=== PATIENT | female | born 1960 | race Caucasian/White ===

== ENCOUNTER 2023-04-20 13:58 | Emergency (ER) | payer MEDICARE ==
[2023-04-20 14:04] VITALS: RESP 20; TEMP 98.6
[2023-04-20 14:57] VITALS: PULSE 86
--- NOTE | 2023-04-20 15:21 | ED ---
General Adult HPI - General Chief complaint: Fall Stated complaint: Lt shoulder injury Time Seen by Provider: 04/20/23 14:53 Source: patient, RN notes reviewed Mode of arrival: ambulatory Limitations: no limitations - History of Present Illness Initial comments: 63-year-old female presents emergency department chief complaint of mechanical fall. Patient states that she fell on Thursday and Thursday and landed on her left shoulder. She reports pain to her left shoulder and left under her axillary area. She states she did not hit her head or lose consciousness. She denies blood thinners. Denies fever, chills. Denies shortness of breath, chest pain. She is also complaining of a productive cough with some congestion. She has a history of COPD. - Related Data Previous Rx's Medication Instructions Recorded Azithromycin [Zithromax Z Pack] 0 tab PO DIRECTED #6 tab 04/20/23 Allergies Allergy/AdvReac Type Severity Reaction Status Date / Time Penicillins Allergy Unknown Verified 04/20/23 14:04 Childhood Review of Systems ROS Statement: Those systems with pertinent positive or pertinent negative responses have been documented in the HPI. ROS Other: All systems not noted in ROS Statement are negative. Past Medical History Past Medical History: No Reported History History of Any Multi-Drug Resistant Organisms: None Reported Past Surgical History: Section, Cholecystectomy Past Psychological History: Anxiety, Depression Smoking Status: Current every day smoker Past Alcohol Use History: None Reported Past Drug Use History: Cocaine, Prescription Drug Abuse General Exam Limitations: no limitations General appearance: alert, in no apparent distress Head exam: Present: atraumatic, normocephalic, normal inspection Eye exam: Present: normal appearance, PERRL, EOMI. Absent: scleral icterus, conjunctival injection, periorbital swelling ENT exam: Present: normal exam, mucous membranes moist Neck exam: Present: normal inspection. Absent: tenderness, meningismus, lymphadenopathy Respiratory exam: Present: normal lung sounds bilaterally, chest wall tenderness (Left-sided chest wall tenderness under the left axilla due to injury). Absent: respiratory distress, wheezes, rales, rhonchi, stridor Cardiovascular Exam: Present: regular rate, normal rhythm, normal heart sounds. Absent: systolic murmur, diastolic murmur, rubs, gallop, clicks Extremities exam: Present: other (Mild tenderness of left shoulder over the deltoid, normal capillary refill, normal range of motion, radial pulses 2+) Back exam: Present: normal inspection Neurological exam: Present: alert, oriented X3 Psychiatric exam: Present: normal affect, normal mood Skin exam: Present: warm, dry, intact, normal color. Absent: rash Course Vital Signs 04/20/23 04/20/23 04/20/23 13:59 14:56 17:03 Temperature 98.6 F Pulse Rate 81 86 86 Respiratory 20 20 20 Rate Blood Pressure 136/86 130/78 145/86 O2 Sat by Pulse 94 L 98 Oximetry Medical Decision Making - Medical Decision Making Was pt. sent in by a medical professional or institution (, PA, RACK PRODUCTION WORKER, urgent care, hospital, or assisted...) When possible be specific @ -No Did you speak to anyone other than the patient for history (EMS, parent, family, police, friend...)? What history was obtained from this source @ -No Did you review nursing and triage notes (agree or disagree)? Why? @ -I reviewed and agree with nursing and triage notes Were old charts reviewed (outside hosp., previous admission, EMS record, old EKG, old radiological studies, urgent care reports/EKG's, assisted records)? Report findings @ -No old charts were reviewed Differential Diagnosis (chest pain, altered mental status, abdominal pain women, abdominal pain men, vaginal bleeding, weakness, fever, dyspnea, syncope, headache, dizziness, GI bleed, back pain, seizure, CVA, palpatations, mental health, musculoskeletal)? @ -Differential Musculoskeletal Muscular strain, contusion, ligament sprain, fracture, arthritis, septic arthritis, bursitis, cellulitis, muscle spasm, nerve compression, DVT, arterial occlusion, herpes zoster, electrolyte abnormality, tumor.... This is not meant to be in all inclusive list EKG interpreted by me (3pts min.). @ -None X-rays interpreted by me (1pt min.). @ -Chest x-ray was obtained which showed no evidence for fracture, no acute cardiopulmonary process X-ray of left shoulder was obtained which showed no evidence for fracture CT interpreted by me (1pt min.). @ -None done U/S interpreted by me (1pt. min.). @ -None done What testing was considered but not performed or refused? (CT, X-rays, U/S, labs)? Why? @ -None What meds were considered but not given or refused? Why? @ -None Did you discuss the management of the patient with other professionals (professionals i.e. , PA, RACK PRODUCTION WORKER, lab, RT, psych nurse, secondary social studies teacher, gallery or museum guide, teacher, eeo officer, registered nurse hh case manager)? Give summary @ -No Was smoking cessation discussed for >3mins.? @ -No Was critical care preformed (if so, how long)? @ -No Were there social determinants of health that impacted care today? How? (Homelessness, low income, unemployed, alcoholism, drug addiction, transportation, low edu. Level, literacy, decrease access to med. care, care home, re hab)? @ -No Was there de-escalation of care discussed even if they declined (Discuss DNR or withdrawal of care, Hospice)? DNR status @ -No What co-morbidities impacted this encounter? (DM, HTN, Smoking, COPD, CAD, Cancer, CVA, ARF, Chemo, Hep., AIDS, mental health diagnosis, sleep apnea, morbid obesity)? @ -None Was patient admitted / discharged? Hospital course, mention meds given and route, prescriptions, significant lab abnormalities, going to OR and other pertinent info. @ -Discharged. Patient presented to emergency department chief complaint of left shoulder pain and left chest wall pain under the axilla following a fall that occurred on Thursday in which she did not hit her head or lose consciousness. X-ray of chest and shoulder were obtained which showed no acute fractures, chest x-ray did not show any evidence acute cardiopulmonary process. Patient was given a shot of Toradol which she reports helped with her pain. Patient also was complaining of a productive cough with congestion but denies fever. Her lungs are clear to auscultation. There was no acute cardiopulmonary process evident on the x-ray. With patients history of COPD, patient was given a z-pac prescription. Patient discharged in stable condition. Case discussed with my attending, Dr. Zuñiga Undiagnosed new problem with uncertain prognosis? @ -No Drug Therapy requiring intensive monitoring for toxicity (Heparin, Nitro, Insulin, Cardizem)? @ -No Were any procedures done? @ -No Diagnosis/symptom? @ -rib contusion Acute, or Chronic, or Acute on Chronic? @ -acute Uncomplicated (without systemic symptoms) or Complicated (systemic symptoms)? @ -uncomplicated Side effects of treatment? @ -No Exacerbation, Progression, or Severe Exacerbation? @ -No Poses a threat to life or bodily function? How? (Chest pain, [place], [place], pneumonia, PE, COPD, DKA, ARF, appy, cholecystitis, CVA, Diverticulitis, Homicidal, Suicidal, threat to staff... and all critical care pts) @ -No Diagnosis/symptom? @ -URI] Acute, or Chronic, or Acute on Chronic? @ -acute Uncomplicated (without systemic symptoms) or Complicated (systemic symptoms)? @ -uncomplicated Side effects of treatment? @ -none Exacerbation, Progression, or Severe Exacerbation] @ -no Poses a threat to life or bodily function? @ -no Disposition Clinical Impression: Fall Disposition: HOME SELF-CARE Condition: Stable Instructions (If sedation given, give patient instructions): Fall Prevention (ED) Additional Instructions: Return to the emergency department for new or worsening symptoms. Prescriptions: Azithromycin [Zithromax Z Pack] 0 tab PO DIRECTED #6 tab Is patient prescribed a controlled substance at d/c from ED?: No Referrals: Lior Wu MD [Primary Care Provider] - 1-2 days
--- NOTE | 2023-04-20 15:36 | XR ---
EXAMINATION TYPE: XR chest 2V DATE OF EXAM: 04/20/2023 COMPARISON: NONE HISTORY: Fall injury with chest and rib pain TECHNIQUE: Frontal and lateral views of the chest are obtained. FINDINGS: There is mild chronic parenchymal change without suspicious focal air space opacity, pleur al effusion, or pneumothorax seen. The cardiac silhouette size is within normal limits. The osseou s structures are intact. Cholecystectomy clips are noted. IMPRESSION: No acute cardiopulmonary process.
--- NOTE | 2023-04-20 15:49 | XR ---
EXAMINATION TYPE: XR shoulder complete LT DATE OF EXAM: 04/20/2023 CLINICAL HISTORY: Falling injury with pain TECHNIQUE: Three views of the left shoulder are obtained. COMPARISON: None. FINDINGS: Osseous structures are demineralized. There is no acute fracture/dislocation evident in th e left shoulder. The acromioclavicular and glenohumeral joint spaces appear within normal limits. T he visualized ribs are intact and unremarkable. IMPRESSION: There is no acute fracture or dislocation in the left shoulder.
[2023-04-20] MEDS ORDERED: KETOROLAC 15 MG/ML 1 ML VIAL IM STA (16:38)
[2023-04-20 17:04] VITALS: BP 145/86
== END 2023-04-20 17:15 | disposition home or self-care (01) ==
LOC: EC 13:58
DX: M25.512 Pain in left shoulder (principal); F17.200 Nicotine dependence, unspecified, uncomplicated; Z88.0 Allergy status to penicillin; Z86.59 Personal history of other mental and behavioral disorders; W18.30XA Fall on same level, unspecified, initial encounter
CPT/HCPCS: 73030; 71046; 99283; J1885

== ENCOUNTER 2024-04-25 08:41 | Inpatient (IN) | payer MEDICARE, OTHER ==
--- NOTE | 2024-04-25 09:15 | ED ---
SOB HPI - General Chief Complaint: Shortness of Breath Stated Complaint: CARMELO Time Seen by Provider: 04/25/24 08:44 Source: patient, EMS, RN notes reviewed, old records reviewed Mode of arrival: EMS Limitations: no limitations - History of Present Illness Initial Comments: This is a 64-year-old female to the ER for evaluation of shortness of breath. Patient states she is coming from [facility] today where she has been having some difficulty breathing for a few days now. Increased cough and congestion and difficulty catching her breath history of smoking. Patient has [facility] for cocaine rehabilitation. Patient denies any fevers but states that she has not been feeling well for some time MD Complaint: shortness of breath, cough, "asthma attack" -: days(s) Severity: moderate Quality: dull Consistency: intermittent Improves With: nothing Worsens With: exertion Known History Of: COPD, asthma Context: recent illness Associated Symptoms: cough, sputum production, nausea/vomiting Treatments Prior to Arrival: none - Related Data Home Medications Medication Instructions Recorded Confirmed ARIPiprazole [Abilify] 5 mg PO DAILY 04/25/24 04/25/24 Acetaminophen Tab [Tylenol] 650 mg PO Q4H PRN 04/25/24 04/25/24 Albuterol Sulfate [Ventolin HFA] 2 puff INHALATION RT-Q4H PRN 04/25/24 04/25/24 Buprenorphine HCl/Naloxone HCl 1 tab SL BID 04/25/24 04/25/24 [Zubsolv 8.6-2.1 mg Tablet Sl] Calcium/Magnesium/Zinc/Vitamin D3 1 tab PO TID PRN 04/25/24 04/25/24 Chlorpheniramine Maleate 4 mg PO Q4HR PRN 04/25/24 04/25/24 [Chlor-Trimeton] Docusate [Colace] 100 mg PO BID PRN 04/25/24 04/25/24 Fluticasone/Umeclidin/Vilanter 1 puff INHALATION RT-DAILY 04/25/24 04/25/24 [Trelegy Ellipta 100-62.5-25] Gabapentin 600 mg PO TID 04/25/24 04/25/24 Ibuprofen [Motrin Ib] 600 mg PO Q6H PRN 04/25/24 04/25/24 Losartan/Hydrochlorothiazide 1 tab PO DAILY 04/25/24 04/25/24 [Hyzaar 100-25 Tablet] Magnesium Hydroxide [Milk of 2,400 mg PO BID PRN 04/25/24 04/25/24 Magnesia] Multivitamins, Thera [Multivitamin 1 tab PO DAILY 04/25/24 04/25/24 (formulary)] Thiamine [Vitamin B-1] 100 mg PO DAILY 04/25/24 04/25/24 Venlafaxine HCl ER [Effexor XR] 75 mg PO DAILY 04/25/24 04/25/24 amLODIPine [Norvasc] 5 mg PO HS 04/25/24 04/25/24 guaiFENesin [guaiFENesin Oral 200 mg PO Q4H PRN 04/25/24 04/25/24 Solution] ondansetron HCL [Zofran] 8 mg PO Q6H PRN 04/25/24 04/25/24 Previous Rx's Medication Instructions Recorded Amoxic-Pot Clav 875-125Mg 1 tab PO BID 1 Days #10 tab 04/29/24 [Augmentin 875-125] predniSONE [Deltasone] 20 mg PO BID #10 tab 04/29/24 Allergies Allergy/AdvReac Type Severity Reaction Status Date / Time Penicillins Allergy Unknown Verified 04/25/24 12:36 Childhood Review of Systems ROS Statement: Those systems with pertinent positive or pertinent negative responses have been documented in the HPI. ROS Other: All systems not noted in ROS Statement are negative. Past Medical History Past Medical History: COPD, Hypertension History of Any Multi-Drug Resistant Organisms: None Reported Past Surgical History: Section, Cholecystectomy Past Psychological History: Anxiety, Depression Smoking Status: Current every day smoker Past Alcohol Use History: None Reported Past Drug Use History: Cocaine, Marijuana, Prescription Drug Abuse - Past Family History Mother Family Medical History: COPD General Exam Limitations: no limitations General appearance: alert, in no apparent distress Head exam: Present: atraumatic, normocephalic, normal inspection Eye exam: Present: normal appearance, PERRL, EOMI. Absent: scleral icterus, conjunctival injection, periorbital swelling ENT exam: Present: normal exam, mucous membranes moist Neck exam: Present: normal inspection. Absent: tenderness, meningismus, lymphadenopathy Respiratory exam: Present: normal lung sounds bilaterally. Absent: respiratory distress, wheezes, rales, rhonchi, stridor Cardiovascular Exam: Present: regular rate, normal rhythm, normal heart sounds. Absent: systolic murmur, diastolic murmur, rubs, gallop, clicks GI/Abdominal exam: Present: soft, normal bowel sounds. Absent: distended, tenderness, guarding, rebound, rigid Extremities exam: Present: normal inspection, full ROM, normal capillary refill. Absent: tenderness, pedal edema, joint swelling, calf tenderness Back exam: Present: normal inspection Neurological exam: Present: alert, oriented X3, CN II-XII intact Psychiatric exam: Present: normal affect, normal mood Skin exam: Present: warm, dry, intact, normal color. Absent: rash Course Vital Signs 04/25/24 04/25/24 04/25/24 08:44 08:48 08:54 Temperature 97.8 F Pulse Rate 74 72 Respiratory 20 20 21 Rate Blood Pressure 122/75 122/75 O2 Sat by Pulse 80 L 88 L 93 L Oximetry 04/25/24 04/25/24 04/25/24 09:00 09:30 09:45 Temperature Pulse Rate 68 68 67 Respiratory 22 17 Rate Blood Pressure 122/75 113/64 O2 Sat by Pulse 94 L 88 L Oximetry 04/25/24 04/25/24 04/25/24 10:00 10:08 10:30 Temperature Pulse Rate 65 74 65 Respiratory 19 18 Rate Blood Pressure 114/68 132/78 O2 Sat by Pulse 94 L 92 L Oximetry 04/25/24 04/25/24 04/25/24 11:00 11:30 11:54 Temperature Pulse Rate 68 71 69 Respiratory 24 17 Rate Blood Pressure 131/85 119/97 O2 Sat by Pulse 92 L Oximetry 04/25/24 04/25/24 04/25/24 12:00 12:05 12:30 Temperature Pulse Rate 70 65 71 Respiratory 16 18 Rate Blood Pressure 106/94 100/72 O2 Sat by Pulse 96 93 L Oximetry 04/25/24 04/25/24 04/25/24 13:00 13:30 15:43 Temperature Pulse Rate 71 63 65 Respiratory 21 18 Rate Blood Pressure 107/54 124/72 O2 Sat by Pulse 89 L Oximetry 04/25/24 04/25/24 04/25/24 15:54 19:29 19:36 Temperature Pulse Rate 65 60 60 Respiratory Rate Blood Pressure O2 Sat by Pulse Oximetry 04/25/24 20:38 Temperature Pulse Rate 70 Respiratory 28 H Rate Blood Pressure 116/73 O2 Sat by Pulse 95 Oximetry - Reevaluation(s) Reevaluation #1: 04/25/24 09:29 Medical records reviewed Reevaluation #2: 04/25/24 09:29 Patient symptoms improving Reevaluation #3: 04/25/24 11:13 Patient informed of results and questions answered Reevaluation #4: Was pt. sent in by a medical professional or institution (MIR[facility] Alba, BARKEEPER, urgent care, hospital, or senior care...) When possible be specific @ -no Did you speak to anyone other than the patient for history (EMS, parent, family, police, friend...)? What history was obtained from this source @ -no Did you review nursing and triage notes (agree or disagree)? Why? @ -agree Are old charts reviewed (outside hosp., previous admission, EMS record, old EKG, old radiological studies, urgent care reports/EKG's, senior care records)? Report findings @ -yes Differential Diagnosis (chest pain, altered mental status, abdominal pain women, abdominal pain men, vaginal bleeding, weakness, fever, dyspnea, syncope, headache, dizziness, GI bleed, back pain, seizure, CVA, palpatations, mental health, musculoskeletal)? @ -prior EKG interpreted by me (3pts min.). @ -yes X-rays interpreted by me (1pt min.). @ -yes significant for bilateral pneumonia CT interpreted by me (1pt min.). @ -no U/S interpreted by me (1pt. min.). @ -no What testing was considered but not performed or refused? (CT, X-rays, U/S, labs)? Why? @ -none What meds were considered but not given or refused? Why? @ -none Did you discuss the management of the patient with other professionals (professionals i.e. MIRZA Alba, BARKEEPER, lab, RT, psych nurse, social sciences research scientist, beverage host, teacher, protocol officer, case management assistant)? Give summary @ -no Was smoking cessation discussed for >3mins.? @ -no Were there social determinants of health that impacted care today? How? ([place] elessness, low income, unemployed, alcoholism, drug addiction, transportation, low edu. Level, literacy, decrease access to med. care, intermediate, rehab)? @ -none Was there de-escalation of care discussed even if they declined (Discuss DNR or withdrawal of care, Hospice)? DNR status @ -no What co-morbidities impacted this encounter? (DM, HTN, Smoking, COPD, CAD, Cancer, CVA, ARF, Chemo, Hep., AIDS, mental health diagnosis, sleep apnea, morbid obesity)? @ -none Was patient admitted / discharged? Hospital course, mention meds given and route, prescriptions, significant lab abnormalities, going to OR and other pertinent info. @ - 64 feet from the car for evaluation of severe COPD, patient does have bilateral pneumonia on x-ray hypoxia on arrival and will admit for persistent respiratory support and IV antibiotics Admitted Was critical care preformed (if so, how long)? @ -yes31 Undiagnosed new problem with uncertain prognosis? @ -no Drug Therapy requiring intensive monitoring for toxicity (Heparin, Nitro, Insulin, Cardizem)? @ -no Were any procedures done? @ -no Diagnosis/symptom? @ -Respiratory failure and pneumonia and hypoxia Acute, or Chronic, or Acute on Chronic? @ -Acute Uncomplicated (without systemic symptoms) or Complicated (systemic symptoms)? @ -Complicated Side effects of treatment? @ -no Exacerbation, Progression, or Severe Exacerbation? @ -exacerbation Poses a threat to life or bodily function? How? (Chest pain, [place], [place], pneumonia, PE, COPD, DKA, ARF, appy, cholecystitis, CVA, Diverticulitis, Homicidal, Suicidal, threat to staff... and all critical care pts) @ -yes stroke failure with hypoxia Reevaluation #5: Differential Dyspnea: Coronary syndrome, arrhythmia, tamponade, asthma, COPD, pulmonary embolism, pneumonia, pneumothorax, pulmonary effusion, anaphylaxis, diabetic ketoacidosis, flailed chest, pulmonary contusion, diaphragmatic rupture, anemia, neuromuscular, this is not meant to be an all-inclusive list. - Consultations Consultation #1: Spoke with dagoberto who agrees to admit this patient Medical Decision Making - Medical Decision Making 64 feet from the car for evaluation of severe COPD, patient does have bilateral pneumonia on x-ray hypoxia on arrival and will admit for persistent respiratory support and IV antibiotics - Lab Data Result diagrams: 04/29/24 06:27 04/29/24 06:27 Lab Results 04/25/24 04/25/24 04/25/24 Range/Units 09:19 09:19 09:19 WBC 15.1 H (3.8-10.6) k/uL RBC 5.21 (3.80-5.40) m/uL Hgb 15.6 (11.4-16.0) gm/dL Hct 48.4 H (34.0-46.0) % MCV 92.8 (80.0-100.0) fL MCH 29.9 (25.0-35.0) pg MCHC 32.3 (31.0-37.0) g/dL RDW 14.3 (11.5-15.5) % Plt Count 256 (150-450) k/uL MPV 8.4 Neutrophils % 79 % Lymphocytes % 12 % Monocytes % 5 % Eosinophils % 2 % Basophils % 1 % Neutrophils # 11.9 H (1.3-7.7) k/uL Lymphocytes # 1.8 (1.0-4.8) k/uL Monocytes # 0.7 (0-1.0) k/uL Eosinophils # 0.3 (0-0.7) k/uL Basophils # 0.1 (0-0.2) k/uL PT 10.1 (10.0-12.5) sec INR 0.9 (<1.2) APTT 24.1 (22.0-30.0) sec Sodium 137 (137-145) mmol/L Potassium 4.5 (3.5-5.1) mmol/L Chloride 104 (98-107) mmol/L Carbon Dioxide 27 (22-30) mmol/L Anion Gap 6 mmol/L BUN 16 (7-17) mg/dL Creatinine 0.63 (0.52-1.04) mg/dL Est GFR (CKD-EPI)AfAm >90 (>60 ml/min/1.73 sqM) Est GFR (CKD-EPI)NonAf >90 (>60 ml/min/1.73 sqM) Glucose 117 H (74-99) mg/dL Calcium 8.5 (8.4-10.2) mg/dL Magnesium 2.4 H (1.6-2.3) mg/dL Total Bilirubin 0.9 (0.2-1.3) mg/dL AST 95 H (14-36) U/L ALT 78 H (4-34) U/L Alkaline Phosphatase 116 (38-126) U/L Troponin I (0.000-0.034) ng/mL NT-Pro-B Natriuret Pep 674 pg/mL Total Protein 7.6 (6.3-8.2) g/dL Albumin 4.4 (3.5-5.0) g/dL 04/25/24 Range/Units 09:19 WBC (3.8-10.6) k/uL RBC (3.80-5.40) m/uL Hgb (11.4-16.0) gm/dL Hct (34.0-46.0) % MCV (80.0-100.0) fL MCH (25.0-35.0) pg MCHC (31.0-37.0) g/dL RDW (11.5-15.5) % Plt Count (150-450) k/uL MPV Neutrophils % % Lymphocytes % % Monocytes % % Eosinophils % % Basophils % % Neutrophils # (1.3-7.7) k/uL Lymphocytes # (1.0-4.8) k/uL Monocytes # (0-1.0) k/uL Eosinophils # (0-0.7) k/uL Basophils # (0-0.2) k/uL PT (10.0-12.5) sec INR (<1.2) APTT (22.0-30.0) sec Sodium (137-145) mmol/L Potassium (3.5-5.1) mmol/L Chloride (98-107) mmol/L Carbon Dioxide (22-30) mmol/L Anion Gap mmol/L BUN (7-17) mg/dL Creatinine (0.52-1.04) mg/dL Est GFR (CKD-EPI)AfAm (>60 ml/min/1.73 sqM) Est GFR (CKD-EPI)NonAf (>60 ml/min/1.73 sqM) Glucose (74-99) mg/dL Calcium (8.4-10.2) mg/dL Magnesium (1.6-2.3) mg/dL Total Bilirubin (0.2-1.3) mg/dL AST (14-36) U/L ALT (4-34) U/L Alkaline Phosphatase (38-126) U/L Troponin I 0.017 (0.000-0.034) ng/mL NT-Pro-B Natriuret Pep pg/mL Total Protein (6.3-8.2) g/dL Albumin (3.5-5.0) g/dL - EKG Data -: EKG Interpreted by Me (EKG is sinus 68 NM 139 QRS 88 QTc 420) - Radiology Data Radiology results: report reviewed (Chest x-ray is positive for bilateral pneumonia), image reviewed Critical Care Time Critical Care Time: Yes Total Critical Care Time: 31 Disposition Clinical Impression: Community acquired pneumonia, Acute exacerbation of chronic obstructive pulmonary disease, Fever, Hypoxia, Acute respiratory failure Disposition: ADMITTED IP TO THIS HOSP Condition: Serious Is patient prescribed a controlled substance at d/c from ED?: No Time of Disposition: 11:00
[2024-04-25 09:34] LABS: Basophils # (A) 0.1 k/uL (0-0.2); Basophils % (A) 1 %; Eosinophils # (A) 0.3 k/uL (0-0.7); Eosinophils % (A) 2 %; HCT 48.4 % (34.0-46.0); HGB 15.6 gm/dL (11.4-16.0); Lymphocytes # (A) 1.8 k/uL (1.0-4.8); Lymphocytes % (A) 12 %; MCH 29.9 pg (25.0-35.0); MCHC 32.3 g/dL (31.0-37.0); MCV 92.8 fL (80.0-100.0); Mean Platelet Volume 8.4; Monocytes # (A) 0.7 k/uL (0-1.0); Monocytes % (A) 5 %; Neutrophils # (A) 11.9 k/uL (1.3-7.7); Neutrophils % (A) 79 %; Platelet Count 256 k/uL (150-450); RBC 5.21 m/uL (3.80-5.40); RDW 14.3 % (11.5-15.5); WBC 15.1 k/uL (3.8-10.6)
[2024-04-25] MEDS: methylPREDNISolone SOD SUCCI 125 MG/2 ML VIAL IV STA (09:38)
[2024-04-25] MEDS: SODIUM CHLORIDE 0.9% 500 ML 500 ML IV STA (09:39)
[2024-04-25] MEDS: IPRATROPIUM-ALBUTEROL 3 ML NEB INHALATION STA ×2 (09:45→11:27)
[2024-04-25 09:46] LABS: INR 0.9 (<1.2); Partial Thromboplastin Time 24.1 sec (22.0-30.0); Prothrombin Time 10.1 sec (10.0-12.5)
[2024-04-25 10:03] LABS: ALT 78 U/L (4-34); African American GFR (CKD) >90 (>60 ml/min/1.73 sqM); Albumin 4.4 g/dL (3.5-5.0); Anion Gap 6 mmol/L; Blood Urea Nitrogen 16 mg/dL (7-17); Calcium 8.5 mg/dL (8.4-10.2); Carbon Dioxide 27 mmol/L (22-30); Chloride 104 mmol/L (98-107); Glucose 117 mg/dL (74-99); Non-African American GFR(CKD) >90 (>60 ml/min/1.73 sqM); Sodium 137 mmol/L (137-145); Total Bilirubin 0.9 mg/dL (0.2-1.3); Total Protein 7.6 g/dL (6.3-8.2)
[2024-04-25 10:04] LABS: AST 95 U/L (14-36); Alkaline Phosphatase 116 U/L (38-126); Magnesium 2.4 mg/dL (1.6-2.3); Potassium 4.5 mmol/L (3.5-5.1)
[2024-04-25 10:11] LABS: NT-Pro-B-Type Natriuretic Pept 674 pg/mL
[2024-04-25] MEDS: SODIUM CHLORIDE 0.9% 1,000 ML IV STA ×2 (10:19→11:49)
--- NOTE | 2024-04-25 11:05 | XR ---
EXAMINATION TYPE: XR chest 1V portable DATE OF EXAM: 04/25/2024 10:08 AM CLINICAL INDICATION:Female, 64 years old with history of sob; [facility] COMPARISON: Chest radiographs from 04/20/2023 TECHNIQUE: XR chest 1V portable Frontal view of the chest. FINDINGS: Lungs/Pleura: Bibasilar airspace opacities. There is no evidence of pleural effusion, or pneumothorax . Pulmonary vascularity: Unremarkable. Heart/mediastinum: Cardiomediastinal silhouette is unremarkable. Musculoskeletal: No acute osseous pathology. IMPRESSION: Basilar airspace opacities correlate for developing pneumonia.
[2024-04-25] MEDS ORDERED: ONDANSETRON 4 MG/2 ML VIAL IVP PRN (11:07)
[2024-04-25] MEDS ORDERED: NALOXONE 0.4 MG/ML 1 ML VIAL IV PRN (11:07)
[2024-04-25] MEDS ORDERED: PNEUMONIA PROTOCOL UTILIZED 1 EACH MISC PO PRN (11:07)
[2024-04-25] MEDS: SODIUM CHLORIDE 0.9% 1,000 ML IV SCH (11:52)
[2024-04-25] MEDS: ALBUTEROL NEBULIZED 2.5 MG/3 ML INHALATION SCH (11:54)
[2024-04-25] MEDS: AZITHROMYCIN 500 MG in SODIUM CHLORIDE 0.9% 250 ML IVPB STA (13:35)
[2024-04-25] MEDS ORDERED: ONDANSETRON 4 MG TAB PO PRN (14:37)
[2024-04-25] MEDS ORDERED: ALBUTEROL NEBULIZED 2.5 MG/3 ML INHALATION PRN (14:37)
--- NOTE | 2024-04-25 15:17 | P.HPIM ---
History of Present Illness H&P Date: 04/25/24 Patient is a 64-year-old female with history of polysubstance use, cocaine use, COPD, nicotine dependence, hypertension, depression/anxiety presenting with shortness of breath. She is coming from [place], where she was admitted 2 weeks ago for cocaine use. She claims that over every time she goes to [place] she develops pneumonia. She claims that she has thick productive cough, and shortness of breath. Denies any worsening cough. She denies any fevers or chills. She denies any abdominal pain, has occasional chest pain with cough, denies any urinary or bowel complaints. Denies any orthopnea, PND, or lower extremity edema. In the ED, temperature was 97.8, pulse 74, respiratory rate 20, blood pressure 122/75, saturating 80% on room air. WBC 15.1, hemoglobin 15.6, potassium 4.5, creatinine 0.63, troponin 0.017 100 and 0.013, proBNP 674, respiratory viral panel negative. Chest x-ray independently interpreted, shows significant bibasilar opacities, more pronounced on the left lower lobe. EKG personally interpreted, shows nonspecific T wave inversions. Patient given normal saline in the ED, IV antibiotics, and IV Solu-Medrol. Patient being admitted for COPD exacerbation as well as community-acquired pneumonia. Pertinent positives and negatives as discussed in HPI, a complete review of systems was performed and all other systems are negative. Patient seen and examined at bedside. Vital signs reviewed General: nontoxic, no distress, appears at stated age Derm: warm, dry Head: atraumatic, normocephalic, symmetric Eyes: EOMI, no lid lag, anicteric sclera, pupils equal round reactive to light ENT: Nose and ears atraumatic Neck: No thyromegaly, supple Mouth: no lip lesion, mucus membranes moist Cardiovascular: S1S2 reg, no murmur, no edema Lungs: clear to auscultation bilateral, no rhonchi, no rales, no wheeze, no accessory muscle use Abdominal: soft, nontender to palpation, no guarding, no appreciable organomegaly Ext: no gross muscle atrophy, muscle strength muscle strength 5 out of 5 in all 4 extremities, no contractures Neuro: CN II-XII grossly intact Psych: Alert, oriented, appropriate affect Assessment/Plan: Active: Acute hypoxic respiratory failure Acute COPD exacerbation Sepsis secondary to community-acquired pneumonia -Continue to wean oxygen -DuoNebs 4 times daily scheduled, every 2 hours as needed -Continue home Trelegy -Solu-Medrol 40 every 6 hours -Continue normal saline at 130 cc an hour -Azithromycin 500 mg IV daily, ceftriaxone 2 g IV daily -Blood cultures, sputum cultures, procalcitonin, Legionella urine antigen pending Hypertension -Continue amlodipine 5, losartan 100 -Hold hydrochlorothiazide as patient is currently on fluids Polysubstance use Cocaine user Opiate dependence -Continue buprenorphine/naloxone twice daily -Continue gabapentin 600 3 times daily -Plan to go back to [place] after this hospitalization Chronic: Anxiety/depression The patient is admitted with an anticipated greater than 2 midnight stay as inpatient status for evaluation of COPD exacerbation. Surrogate decision-maker: Mother CODE STATUS: Full code DVT prophylaxis: Subcu heparin Anticipated discharge date: Pending clinical course Anticipated discharge place: Pending clinical course A total of 55 minutes was spent on the care of this complex patient more than 50% of the time was spent in counseling and care coordination. Past Medical History Past Medical History: COPD, Hypertension History of Any Multi-Drug Resistant Organisms: None Reported Past Surgical History: Section, Cholecystectomy Past Psychological History: Anxiety, Depression Smoking Status: Current every day smoker Past Alcohol Use History: None Reported Past Drug Use History: Cocaine, Marijuana, Prescription Drug Abuse Medications and Allergies Home Medications Medication Instructions Recorded Confirmed Type ARIPiprazole [Abilify] 5 mg PO DAILY 04/25/24 04/25/24 History Acetaminophen Tab [Tylenol] 650 mg PO Q4H PRN 04/25/24 04/25/24 History Albuterol Sulfate [Ventolin HFA] 2 puff INHALATION RT-Q4H PRN 04/25/24 04/25/24 History Buprenorphine HCl/Naloxone HCl 1 tab SL BID 04/25/24 04/25/24 History [Zubsolv 8.6-2.1 mg Tablet Sl] Calcium/Magnesium/Zinc/Vitamin D3 1 tab PO TID PRN 04/25/24 04/25/24 History Chlorpheniramine Maleate 4 mg PO Q4HR PRN 04/25/24 04/25/24 History [Chlor-Trimeton] Docusate [Colace] 100 mg PO BID PRN 04/25/24 04/25/24 History Fluticasone/Umeclidin/Vilanter 1 puff INHALATION RT-DAILY 04/25/24 04/25/24 History [Trelenany Ellipta 100-62.5-25] Gabapentin 600 mg PO TID 04/25/24 04/25/24 History Ibuprofen [Motrin Ib] 600 mg PO Q6H PRN 04/25/24 04/25/24 History Losartan/Hydrochlorothiazide 1 tab PO DAILY 04/25/24 04/25/24 History [Hyzaar 100-25 Tablet] Magnesium Hydroxide [Milk of 2,400 mg PO BID PRN 04/25/24 04/25/24 History Magnesia] Multivitamins, Thera [Multivitamin 1 tab PO DAILY 04/25/24 04/25/24 History (formulary)] Thiamine [Vitamin B-1] 100 mg PO DAILY 04/25/24 04/25/24 History Venlafaxine HCl ER [Effexor Xr] 75 mg PO DAILY 04/25/24 04/25/24 History amLODIPine [Norvasc] 5 mg PO HS 04/25/24 04/25/24 History guaiFENesin [guaiFENesin Oral 200 mg PO Q4H PRN 04/25/24 04/25/24 History Solution] ondansetron HCL [Zofran] 8 mg PO Q6H PRN 04/25/24 04/25/24 History Allergies Allergy/AdvReac Type Severity Reaction Status Date / Time Penicillins Allergy Unknown Verified 04/25/24 12:36 Childhood Physical Exam Vitals: Vital Signs Temp Pulse Resp BP Pulse Ox 04/25/24 13:30 63 18 124/72 89 L 04/25/24 13:00 71 21 107/54 04/25/24 12:30 71 18 100/72 93 L 04/25/24 12:00 70 16 106/94 96 04/25/24 11:54 69 04/25/24 11:30 71 17 119/97 04/25/24 11:00 68 24 131/85 92 L 04/25/24 10:30 65 18 132/78 92 L 04/25/24 10:08 74 04/25/24 10:00 65 19 114/68 94 L 04/25/24 09:45 67 04/25/24 09:30 68 17 113/64 88 L 04/25/24 09:00 68 22 122/75 94 L 04/25/24 08:54 72 21 122/75 93 L 04/25/24 08:48 97.8 F 88 L 04/25/24 08:44 74 20 122/75 80 L Intake and Output 04/25/24 04/25/24 04/25/24 06:59 14:59 22:59 Other: Weight 70.76 kg Results CBC & Chem 7: 04/25/24 09:19 04/25/24 09:19 Labs: Abnormal Lab Results - Last 24 Hours (Table) 04/25/24 04/25/24 Range/Units 09:19 09:19 WBC 15.1 H (3.8-10.6) k/uL Hct 48.4 H (34.0-46.0) % Neutrophils # 11.9 H (1.3-7.7) k/uL Glucose 117 H (74-99) mg/dL Magnesium 2.4 H (1.6-2.3) mg/dL AST 95 H (14-36) U/L ALT 78 H (4-34) U/L
[2024-04-25] MEDS: IPRATROPIUM-ALBUTEROL 3 ML NEB INHALATION SCH (15:43)
[2024-04-25] MEDS: HEPARIN SODIUM,PORCINE 5,000 UNIT/ML 1 ML VIAL SQ SCH (18:44)
[2024-04-25] MEDS: methylPREDNISolone SOD SUCCI 40 MG/ML 1 ML VIAL IV SCH (18:45)
[2024-04-25] MEDS: GABAPENTIN 300 MG CAP PO SCH (18:45)
[2024-04-25] MEDS: ZUBSOLV SUBLINGUAL SCH (21:39)
[2024-04-25] MEDS: amLODIPine 5 MG TAB PO SCH (21:39)
[2024-04-25] MEDS: NICOTINE 14MG/24HR PATCH TRANSDERM SCH (21:39)
[2024-04-26] MEDS: LOSARTAN 50 MG TAB PO SCH (09:01)
[2024-04-26] MEDS: THIAMINE 100 MG TAB PO SCH (09:01)
[2024-04-26] MEDS: VENLAFAXINE HCL ER 37.5 MG CAP PO SCH (09:02)
[2024-04-26] MEDS: ARIPiprazole 5 MG TAB PO SCH (09:03)
[2024-04-26 09:22] LABS: Basophils % (A) 0 %; Eosinophils % (A) 0 %; HGB 14.5 gm/dL (11.4-16.0); Lymphocytes # (A) 1.3 k/uL (1.0-4.8); Lymphocytes % (A) 6 %; MCH 29.7 pg (25.0-35.0); MCHC 31.6 g/dL (31.0-37.0); Mean Platelet Volume 8.5; Monocytes # (A) 0.6 k/uL (0-1.0); Monocytes % (A) 3 %; Neutrophils # (A) 18.7 k/uL (1.3-7.7); Neutrophils % (A) 90 %; Platelet Count 252 k/uL (150-450); RBC 4.89 m/uL (3.80-5.40); WBC 20.7 k/uL (3.8-10.6)
[2024-04-26 09:27] LABS: ALT 72 U/L (4-34); AST 86 U/L (14-36); African American GFR (CKD) >90 (>60 ml/min/1.73 sqM); Albumin 3.9 g/dL (3.5-5.0); Albumin/Globulin Ratio 1.4; Alkaline Phosphatase 125 U/L (38-126); Anion Gap 6 mmol/L; Blood Urea Nitrogen 13 mg/dL (7-17); Calcium 8.4 mg/dL (8.4-10.2); Carbon Dioxide 26 mmol/L (22-30); Chloride 109 mmol/L (98-107); Globulin 2.7 g/dL; Glucose 137 mg/dL (74-99); Magnesium 2.3 mg/dL (1.6-2.3); Non-African American GFR(CKD) >90 (>60 ml/min/1.73 sqM); Phosphorus 1.5 mg/dL (2.5-4.5); Potassium 3.9 mmol/L (3.5-5.1); Sodium 141 mmol/L (137-145); Total Bilirubin 0.6 mg/dL (0.2-1.3); Total Protein 6.6 g/dL (6.3-8.2)
--- NOTE | 2024-04-26 09:29 | XR ---
EXAMINATION TYPE: XR chest 2V DATE OF EXAM: 04/26/2024 7:23 AM CLINICAL INDICATION:Female, 64 years old with history of pna; COMPARISON: Chest radiograph from one day prior. TECHNIQUE: XR chest 2V Frontal and lateral views of the chest. FINDINGS: Lungs/Pleura: There is flattening of the diaphragm with increased lucency of the lungs. No evidence o f pneumothorax, pleural effusion or focal consolidation. Pulmonary vascularity: Unremarkable. Heart/mediastinum: Cardiomediastinal silhouette is unremarkable. Musculoskeletal: No acute osseous pathology. IMPRESSION: Chronic changes without acute pulmonary process. No significant change from prior.
[2024-04-26] MEDS: AZITHROMYCIN 500 MG in SODIUM CHLORIDE 0.9% 250 ML IVPB SCH (10:02)
--- NOTE | 2024-04-26 13:00 | P.PN ---
Subjective Progress Note Date: 04/26/24 Feels much better today, no chest pain no abdominal pain no nausea vomiting no dizziness no shortness of breath. Objective - Vital Signs Vital signs: Vital Signs Temp 97.7 F 04/26/24 07:13 Pulse 70 04/26/24 12:14 Resp 24 04/26/24 07:13 BP 160/81 04/26/24 07:13 Pulse Ox 91 L 04/26/24 09:08 FiO2 Intake & Output 04/25/24 04/26/24 04/26/24 18:59 06:59 18:59 Intake Total 1300 Balance 1300 Weight 70.76 kg 70.76 kg Intake: Intake, IV Titration 1300 Amount Sodium Chloride 0.9% 1, 1300 000 ml @ 130 mls/hr IV . Q7H42M [facility] Rx#:[id number] Other: Voiding Method Toilet Toilet # Voids 3 2 - Exam General: nontoxic, no distress, appears at stated age Derm: warm, dry Head: atraumatic, normocephalic, symmetric Eyes: EOMI, no lid lag, anicteric sclera, pupils equal round reactive to light ENT: Nose and ears atraumatic Neck: No thyromegaly, supple Mouth: no lip lesion, mucus membranes moist Cardiovascular: S1S2 reg, no murmur, no edema Lungs: clear to auscultation bilateral, no rhonchi, no rales, no wheeze, no accessory muscle use Abdominal: soft, nontender to palpation, no guarding, no appreciable organo megaly Ext: no gross muscle atrophy, muscle strength muscle strength 5 out of 5 in all 4 extremities, no contractures Neuro: CN II-XII grossly intact Psych: Alert, oriented, appropriate affect - Labs CBC & Chem 7: 04/26/24 08:17 04/26/24 08:17 Labs: Abnormal Lab Results - Last 24 Hours (Table) 04/25/24 04/26/24 04/26/24 Range/Units 15:58 08:17 08:17 WBC 20.7 H (3.8-10.6) k/uL Neutrophils # 18.7 H (1.3-7.7) k/uL Chloride 109 H (98-107) mmol/L Creatinine 0.42 L (0.52-1.04) mg/dL Glucose 137 H (74-99) mg/dL Phosphorus 1.5 L (2.5-4.5) mg/dL AST 86 H (14-36) U/L ALT 72 H (4-34) U/L Procalcitonin 0.13 H (0.02-0.09) ng/mL Assessment and Plan Plan: Acute hypoxic respiratory failure Acute COPD exacerbation Sepsis secondary to community-acquired pneumonia -Continue to wean oxygen -DuoNebs 4 times daily scheduled, every 2 hours as needed -Continue home Trelegy -Solu-Medrol 40 every 6 hours -Continue normal saline at 130 cc an hour -Azithromycin 500 mg IV daily, ceftriaxone 2 g IV daily -Blood cultures, sputum cultures, procalcitonin, Legionella urine antigen WB 20 Hypertension -Continue amlodipine 5, losartan 100 -Hold hydrochlorothiazide as patient is currently on fluids Polysubstance use Cocaine user Opiate dependence -Continue buprenorphine/naloxone twice daily -Continue gabapentin 600 3 times daily -Plan to go back to [place] after this hospitalization Chronic: Anxiety/depression Disposition back to facility in the next 1 to 2 days, continue to monitor WBC clinical progression
[2024-04-26] MEDS: ZUBSOLV SUBLINGUAL SCH (13:40)
[2024-04-26] MEDS: MAGNESIUM HYDROXIDE 2,400 MG/30 ML CUP PO PRN (17:44)
[2024-04-26] MEDS: SYMBICORT 80-4.5 MCG INHALER INHALATION SCH (23:34)
[2024-04-27] MEDS: IPRATROPIUM-ALBUTEROL 3 ML NEB INHALATION PRN (02:32)
--- NOTE | 2024-04-27 10:12 | P.PN ---
Subjective Progress Note Date: 04/27/24 Feels okay today, still has some cough and feels chest tightness. Occasional wheezing. No chest pain, no abdominal pain. Remains afebrile. Objective - Vital Signs Vital signs: Vital Signs Temp 98.3 F 04/27/24 07:10 Pulse 92 04/27/24 09:16 Resp 16 04/27/24 07:10 BP 143/83 04/27/24 07:10 Pulse Ox 93 L 04/27/24 07:10 FiO2 Intake & Output 04/26/24 04/27/24 04/27/24 18:59 06:59 18:59 Other: Voiding Method Toilet Toilet # Voids 1 3 - Exam General: nontoxic, no distress, appears at stated age Derm: warm, dry Head: atraumatic, normocephalic, symmetric Eyes: EOMI, no lid lag, anicteric sclera, pupils equal round reactive to light ENT: Nose and ears atraumatic Neck: No thyromegaly, supple Mouth: no lip lesion, mucus membranes moist Cardiovascular: S1S2 reg, no murmur, no edema Lungs: clear to auscultation bilateral, no rhonchi, no rales, no wheeze, no accessory muscle use Abdominal: soft, nontender to palpation, no guarding, no appreciable organ omegaly Ext: no gross muscle atrophy, muscle strength muscle strength 5 out of 5 in all 4 extremities, no contractures Neuro: CN II-XII grossly intact Psych: Alert, oriented, appropriate affect - Labs CBC & Chem 7: 04/26/24 08:17 04/26/24 08:17 Labs: Microbiology - Last 24 Hours (Table) 04/26/24 04:10 Gram Stain - Preliminary Sputum Sputum Culture - Preliminary 04/25/24 11:30 Blood Culture - Preliminary Blood 04/25/24 11:45 Blood Culture - Preliminary Blood Assessment and Plan Plan: Acute hypoxic respiratory failure Acute COPD exacerbation Sepsis secondary to community-acquired pneumonia -Continue to wean oxygen -DuoNebs 4 times daily scheduled, every 2 hours as needed -Continue home Trelegy -Solu-Medrol 40 every 6 hours -Continue normal saline at 130 cc an hour -Azithromycin and ceftriaxone 2 g IV daily -Blood cultures, sputum cultures, procalcitonin, Legionella urine antigen WB 20 pending labs today. Continue current treatment, gradual improvement. Hypertension -Continue amlodipine 5, losartan 100 -Hold hydrochlorothiazide as patient is currently on fluids Polysubstance use Cocaine user Opiate dependence -Continue buprenorphine/naloxone twice daily -Continue gabapentin 600 3 times daily -Plan to go back to [place] after this hospitalization Chronic: Anxiety/depression Disposition back to facility in the next 1 to 2 days, continue to monitor WBC clinical progression
[2024-04-27 10:26] LABS: ALT 96 U/L (8-44); AST 104 U/L (13-35); Albumin 3.8 g/dL (3.8-4.9); Albumin/Globulin Ratio 1.73 Ratio (1.60-3.17); Alkaline Phosphatase 105 U/L (41-126); BUN/Creat Ratio 15.83 Ratio (12.00-20.00); Blood Urea Nitrogen 9.5 mg/dL (9.0-27.0); Calcium 7.9 mg/dL (8.7-10.3); Carbon Dioxide 23.8 mmol/L (21.6-31.8); Chloride 105 mmol/L (96-109); Globulin 2.2 g/dL (1.6-3.3); Glucose 151 mg/dL (70-110); Potassium 3.9 mmol/L (3.5-5.5); Sodium 141 mmol/L (135-145); Total Bilirubin <0.2 mg/dL (0.3-1.2)
[2024-04-27 10:35] LABS: HCT 39.8 % (37.2-46.3); HGB 12.9 g/dL (12.0-15.0); MCH 29.1 pg (27.0-32.0); MCHC 32.4 g/dL (32.0-37.0); MCV 89.8 FL (80.0-97.0); Mean Platelet Volume 11.1 FL (9.5-12.2); NRBC Per 100 WBC 0 X 10*3/uL (0.00-0.01); Platelet Count 228 X 10*3/uL (140-440); RBC 4.43 X 10*6/uL (4.10-5.20); RDW 14.8 % (11.5-14.5)
[2024-04-27 11:11] LABS: Basophils # (A) 0.03 X 10*3/uL (0.00-0.10); Basophils % (A) 0.1 %; Eosinophils # (A) 0 X 10*3/uL (0.04-0.35); Eosinophils % (A) 0 %; Lymphocytes # (A) 0.71 X 10*3/uL (0.90-5.00); Lymphocytes % (A) 3.2 %; Monocytes # (A) 0.75 X 10*3/uL (0.20-1.00); Monocytes % (A) 3.4 %; Neutrophils # (A) 20.26 X 10*3/uL (1.80-7.70); Neutrophils % (A) 92.6 %; RBC Morphology Normal (Normal)
[2024-04-27] MEDS: ALBUTEROL NEBULIZED 2.5 MG/3 ML INHALATION SCH (11:52)
[2024-04-27] MEDS: TRELEGY ELLIPTA INHALATION SCH ×2 (11:56→12:02)
[2024-04-27] MEDS: ACETAMINOPHEN TAB 325 MG TAB PO PRN (16:48)
[2024-04-27] MEDS: guaiFENesin SYRUP 100MG/5ML 200 MG/10 ML CUP PO PRN (16:48)
[2024-04-28 09:49] LABS: Basophils # (A) 0.04 X 10*3/uL (0.00-0.10); Basophils % (A) 0.2 %; Eosinophils # (A) 0 X 10*3/uL (0.04-0.35); Eosinophils % (A) 0 %; HCT 45.3 % (37.2-46.3); HGB 14.3 g/dL (12.0-15.0); Lymphocytes % (A) 6.4 %; MCH 29.5 pg (27.0-32.0); MCHC 31.6 g/dL (32.0-37.0); MCV 93.4 FL (80.0-97.0); Mean Platelet Volume 11.2 FL (9.5-12.2); Monocytes # (A) 0.73 X 10*3/uL (0.20-1.00); Monocytes % (A) 3.9 %; NRBC Per 100 WBC 0 X 10*3/uL (0.00-0.01); Neutrophils # (A) 16.54 X 10*3/uL (1.80-7.70); Neutrophils % (A) 88.5 %; Platelet Count 249 X 10*3/uL (140-440); RBC 4.85 X 10*6/uL (4.10-5.20); RDW 14.9 % (11.5-14.5)
[2024-04-28 10:17] LABS: ALT 176 U/L (8-44); AST 154 U/L (13-35); Albumin 4.1 g/dL (3.8-4.9); Albumin/Globulin Ratio 1.64 Ratio (1.60-3.17); Alkaline Phosphatase 116 U/L (41-126); BUN/Creat Ratio 15.33 Ratio (12.00-20.00); Blood Urea Nitrogen 9.2 mg/dL (9.0-27.0); Calcium 8.2 mg/dL (8.7-10.3); Carbon Dioxide 25.7 mmol/L (21.6-31.8); Chloride 106 mmol/L (96-109); Globulin 2.5 g/dL (1.6-3.3); Glucose 150 mg/dL (70-110); Potassium 4.2 mmol/L (3.5-5.5); Sodium 143 mmol/L (135-145); Total Bilirubin 0.2 mg/dL (0.3-1.2); Total Protein 6.6 g/dL (6.2-8.2)
--- NOTE | 2024-04-28 11:32 | P.PN ---
Subjective Progress Note Date: 04/28/24 Feels better still has cough and wheezing. Not requiring oxygen Objective - Vital Signs Vital signs: Vital Signs Temp 97.5 F L 04/28/24 07:51 Pulse 77 04/28/24 07:51 Resp 18 04/28/24 07:51 BP 165/89 04/28/24 07:51 Pulse Ox 96 04/28/24 07:59 FiO2 Intake & Output 04/27/24 04/28/24 04/28/24 18:59 06:59 18:59 Intake Total 1070 Balance 1070 Intake: Oral 1070 Other: Voiding Method Toilet # Voids 2 2 - Exam General: nontoxic, no distress, appears at stated age Derm: warm, dry Head: atraumatic, normocephalic, symmetric Eyes: EOMI, no lid lag, anicteric sclera, pupils equal round reactive to light ENT: Nose and ears atraumatic Neck: No thyromegaly, supple Mouth: no lip lesion, mucus membranes moist Cardiovascular: S1S2 reg, no murmur, no edema Lungs: clear to auscultation bilateral, no rhonchi, no rales, no wheeze, no accessory muscle use Abdominal: soft, nontender to palpation, no guarding, no appreciable organomegaly Ext: no gross muscle atrophy, muscle strength muscle strength 5 out of 5 in all 4 extremities, no contractures Neuro: CN II-XII grossly intact Psych: Alert, oriented, appropriate affect - Labs CBC & Chem 7: 04/28/24 05:09 04/28/24 05:09 Labs: Abnormal Lab Results - Last 24 Hours (Table) 04/28/24 04/28/24 Range/Units 05:09 05:09 WBC 18.70 H (4.50-10.00) X 10*3/uL MCHC 31.6 L (32.0-37.0) g/dL RDW 14.9 H (11.5-14.5) % Immature Gran # 0.19 H (0.00-0.04) X 10*3/uL Neutrophils # 16.54 H (1.80-7.70) X 10*3/uL Eosinophils # 0 L (0.04-0.35) X 10*3/uL Glucose 150 H (70-110) mg/dL Calcium 8.2 L (8.7-10.3) mg/dL Total Bilirubin 0.2 L (0.3-1.2) mg/dL AST 154 H (13-35) U/L ALT 176 H (8-44) U/L Microbiology - Last 24 Hours (Table) 04/26/24 04:10 Gram Stain - Final Sputum Sputum Culture - Final 04/25/24 11:30 Blood Culture - Preliminary Blood 04/25/24 11:45 Blood Culture - Preliminary Blood Assessment and Plan Plan: Acute hypoxic respiratory failure Acute COPD exacerbation Sepsis secondary to community-acquired pneumonia -Continue to wean oxygen -DuoNebs 4 times daily scheduled, every 2 hours as needed -Continue home Trelegy -Solu-Medrol 40 every 6 hours -Continue normal saline at 130 cc an hour -Azithromycin and ceftriaxone 2 g IV daily -Blood cultures, sputum cultures, procalcitonin, Legionella urine antigen WB down to 18.7 Continue current treatment, gradual improvement. Increase Solu-Medrol to 60 mg Hypertension -Continue amlodipine 5, losartan 100 -Hold hydrochlorothiazide as patient is currently on fluids Polysubstance use Cocaine user Opiate dependence -Continue buprenorphine/naloxone twice daily -Continue gabapentin 600 3 times daily -Plan to go back to [place] after this hospitalization Chronic: Anxiety/depression Disposition back to facility in the next 1 to 2 days, continue to monitor WBC clinical progression pending clinical improvement
[2024-04-28] MEDS: methylPREDNISolone SOD SUCCI 125 MG/2 ML VIAL IV SCH (13:07)
[2024-04-29 08:04] VITALS: BP 163/94; RESP 24; TEMP 98.4
[2024-04-29 08:38] VITALS: PULSE 83
--- NOTE | 2024-04-29 10:33 | P.DS ---
Providers Date of admission: 04/25/24 11:07 Expected date of discharge: 04/29/24 Attending physician: Haylie Bartlett DO Primary care physician: Lior Wu Hospital Course: Discharge diagnoses: Acute hypoxic respiratory failure Acute COPD exacerbation Sepsis secondary to community-acquired pneumonia -Continue to wean oxygen -DuoNebs 4 times daily scheduled, every 2 hours as needed -Continue home Trelegy -Solu-Medrol 40 every 6 hours -Continue normal saline at 130 cc an hour -Azithromycin and ceftriaxone 2 g IV daily -Blood cultures, sputum cultures, procalcitonin, Legionella urine antigen WB down to 18.7 Continue current treatment, gradual improvement. Increase Solu-Medrol to 60 mg Hypertension -Continue amlodipine 5, losartan 100 -Hold hydrochlorothiazide as patient is currently on fluids Polysubstance use Cocaine user Opiate dependence -Continue buprenorphine/naloxone twice daily -Continue gabapentin 600 3 times daily -Plan to go back to [place] after this hospitalization H&P Date: 04/25/24 Patient is a 64-year-old female with history of polysubstance use, cocaine use, COPD, nicotine dependence, hypertension, depression/anxiety presenting with shortness of breath. She is coming from [place], where she was admitted 2 weeks ago for cocaine use. She claims that over every time she goes to [place] she develops pneumonia. She claims that she has thick productive cough, and shortness of breath. Denies any worsening cough. She denies any fevers or chills. She denies any abdominal pain, has occasional chest pain with cough, denies any urinary or bowel complaints. Denies any orthopnea, PND, or lower extremity edema. In the ED, temperature was 97.8, pulse 74, respiratory rate 20, blood pressure 122/75, saturating 80% on room air. WBC 15.1, hemoglobin 15.6, potassium 4.5, creatinine 0.63, troponin 0.017 100 and 0.013, proBNP 674, respiratory viral panel negative. Chest x-ray independently interpreted, shows significant bibasilar opacities, more pronounced on the left lower lobe. EKG personally interpreted, shows nonspecific T wave inversions. Patient given normal saline in the ED, IV antibiotics, and IV Solu-Medrol. Patient being admitted for COPD exacerbation as well as community-acquired pneumonia. Hospital course and treatment: Patient was admitted to the hospital with acute hypoxic respiratory failure secondary to COPD exacerbation and pneumonia, she is treated with oxygen regulators IV steroids and antibiotics with Rocephin and Zithromax She completed a course of antibiotics, remains afebrile. Continue to gradually improve. Leukocytosis likely associated with being on steroids. At the time of discharge she feels much better. Cardiac enzymes are negative. With her improvement she will be discharged back to [place]. She will follow-up as an outpatient. Patient Condition at Discharge: Fair Plan - Discharge Summary Discharge Rx Participant: Yes New Discharge Prescriptions: New predniSONE [Deltasone] 20 mg PO BID #10 tab Continue amLODIPine [Norvasc] 5 mg PO HS ARIPiprazole [Abilify] 5 mg PO DAILY Buprenorphine HCl/Naloxone HCl [Zubsolv 8.6-2.1 mg Tablet Sl] 1 tab SL BID Fluticasone/Umeclidin/Vilanter [Trelegy Ellipta 100-62.5-25] 1 puff INHALATION RT-DAILY Gabapentin 600 mg PO TID Ibuprofen [Motrin Ib] 600 mg PO Q6H PRN PRN Reason: Pain Multivitamins, Thera [Multivitamin (formulary)] 1 tab PO DAILY Calcium/Magnesium/Zinc/Vitamin D3 1 tab PO TID PRN PRN Reason: MUSCLE CRAMPS Acetaminophen Tab [Tylenol] 650 mg PO Q4H PRN PRN Reason: Pain Albuterol Sulfate [Ventolin HFA] 2 puff INHALATION RT-Q4H PRN PRN Reason: Shortness Of Breath Chlorpheniramine Maleate [Chlor-Trimeton] 4 mg PO Q4HR PRN PRN Reason: Allergy Symptoms Docusate [Colace] 100 mg PO BID PRN PRN Reason: Constipation guaiFENesin [guaiFENesin Oral Solution] 200 mg PO Q4H PRN PRN Reason: Cough Losartan/Hydrochlorothiazide [Hyzaar 100-25 Tablet] 1 tab PO DAILY Magnesium Hydroxide [Milk of Magnesia] 2,400 mg PO BID PRN PRN Reason: Constipation ondansetron HCL [Zofran] 8 mg PO Q6H PRN PRN Reason: Nausea Thiamine [Vitamin B-1] 100 mg PO DAILY Venlafaxine HCl ER [Effexor XR] 75 mg PO DAILY Discharge Medication List ARIPiprazole [Abilify] 5 mg PO DAILY 04/25/24 [History] Acetaminophen Tab [Tylenol] 650 mg PO Q4H PRN 04/25/24 [History] Albuterol Sulfate [Ventolin HFA] 2 puff INHALATION RT-Q4H PRN 04/25/24 [History] Buprenorphine HCl/Naloxone HCl [Zubsolv 8.6-2.1 mg Tablet Sl] 1 tab SL BID 04/25/24 [History] Calcium/Magnesium/Zinc/Vitamin D3 1 tab PO TID PRN 04/25/24 [History] Chlorpheniramine Maleate [Chlor-Trimeton] 4 mg PO Q4HR PRN 04/25/24 [History] Docusate [Colace] 100 mg PO BID PRN 04/25/24 [History] Fluticasone/Umeclidin/Vilanter [Trelegy Ellipta 100-62.5-25] 1 puff INHALATION RT-DAILY 04/25/24 [History] Gabapentin 600 mg PO TID 04/25/24 [History] Ibuprofen [Motrin Ib] 600 mg PO Q6H PRN 04/25/24 [History] Losartan/Hydrochlorothiazide [Hyzaar 100-25 Tablet] 1 tab PO DAILY 04/25/24 [History] Magnesium Hydroxide [Milk of Magnesia] 2,400 mg PO BID PRN 04/25/24 [History] Multivitamins, Thera [Multivitamin (formulary)] 1 tab PO DAILY 04/25/24 [History] Thiamine [Vitamin B-1] 100 mg PO DAILY 04/25/24 [History] Venlafaxine HCl ER [Effexor XR] 75 mg PO DAILY 04/25/24 [History] amLODIPine [Norvasc] 5 mg PO HS 04/25/24 [History] guaiFENesin [guaiFENesin Oral Solution] 200 mg PO Q4H PRN 04/25/24 [History] ondansetron HCL [Zofran] 8 mg PO Q6H PRN 04/25/24 [History] predniSONE [Deltasone] 20 mg PO BID #10 tab 04/29/24 [Rx] Follow up Appointment(s)/Referral(s): Lior Wu MD [Primary Care Provider] - 1-2 days Discharge Disposition: HOME SELF-CARE
[2024-04-29 11:29] LABS: ALT 206 U/L (8-44); AST 119 U/L (13-35); Albumin 3.9 g/dL (3.8-4.9); Albumin/Globulin Ratio 1.56 Ratio (1.60-3.17); Alkaline Phosphatase 123 U/L (41-126); Blood Urea Nitrogen 12.6 mg/dL (9.0-27.0); Calcium 8.8 mg/dL (8.7-10.3); Carbon Dioxide 30.4 mmol/L (21.6-31.8); Chloride 99 mmol/L (96-109); Globulin 2.5 g/dL (1.6-3.3); Glucose 158 mg/dL (70-110); HCT 45.1 % (37.2-46.3); HGB 14.5 g/dL (12.0-15.0); MCH 29.5 pg (27.0-32.0); MCHC 32.2 g/dL (32.0-37.0); MCV 91.9 FL (80.0-97.0); Mean Platelet Volume 11.1 FL (9.5-12.2); NRBC Per 100 WBC 0 X 10*3/uL (0.00-0.01); Platelet Count 234 X 10*3/uL (140-440); RBC 4.91 X 10*6/uL (4.10-5.20); RDW 14.6 % (11.5-14.5); Sodium 140 mmol/L (135-145); Total Bilirubin 0.3 mg/dL (0.3-1.2); Total Protein 6.4 g/dL (6.2-8.2); WBC 12.66 X 10*3/uL (4.50-10.00)
[2024-04-29 12:00] LABS: Basophils # (A) 0.04 X 10*3/uL (0.00-0.10); Basophils % (A) 0.3 %; Eosinophils # (A) 0 X 10*3/uL (0.04-0.35); Eosinophils % (A) 0 %; Lymphocytes % (A) 9.5 %; Monocytes # (A) 0.65 X 10*3/uL (0.20-1.00); Monocytes % (A) 5.1 %; Neutrophils # (A) 10.57 X 10*3/uL (1.80-7.70); Neutrophils % (A) 83.5 %
[2024-04-29 12:01] LABS: RBC Morphology Normal (Normal)
== END 2024-04-29 13:55 | disposition home or self-care (01) | DRG 871 ==
LOC: EC 08:41 → 4SSUR 11:07 → 5NMEDONC 19:07
PROVIDERS: ADMIT Internal Medicine; ATTEND Internal Medicine
DX: A41.9 Sepsis, unspecified organism (principal); J18.9 Pneumonia, unspecified organism; J96.01 Acute respiratory failure with hypoxia; J44.1 Chronic obstructive pulmonary disease with (acute) exacerbation; J44.0 Chronic obstructive pulmonary disease with (acute) lower respiratory infection; F11.20 Opioid dependence, uncomplicated; I10 Essential (primary) hypertension; F32.A Depression, unspecified; F12.10 Cannabis abuse, uncomplicated; F14.90 Cocaine use, unspecified, uncomplicated; F41.9 Anxiety disorder, unspecified; F17.200 Nicotine dependence, unspecified, uncomplicated; Z71.6 Tobacco abuse counseling; Z79.51 Long term (current) use of inhaled steroids; Z79.899 Other long term (current) drug therapy; Z88.0 Allergy status to penicillin
CPT/HCPCS: 36415; 71045; 71046; 80053; 83735; 83880; 84100; 84145; 84484; 85025; 85610; 85730; 87040; 87070; 87205; 87449; 87636; 93005; 94640; 94760; 96361; 96365; 96367; 96372; 96375; 96376; 99291